=== PATIENT | male | born 1970 | race Caucasian/White ===

== ENCOUNTER → 2022-06-30 14:44 | Outpatient (CLI) | payer OTHER, SELFPAY ==
--- NOTE | 2022-06-30 14:47 | DI.RAD.S_ITS ---
PROCEDURE: XR SHOULDER RT MIN 2V INDICATIONS: Right shoulder strain TECHNIQUE: 3 views of the shoulder were acquired. COMPARISON: None. FINDINGS: Moderate acromioclavicular and glenohumeral osteoarthritis with joint space narrowing and marginal osteophytosis. No fracture. No suspicious soft tissue calcification IMPRESSION: Moderate glenohumeral and acromioclavicular degenerative changes. Dictated by: Francisco Cotter M.D. on 07/01/2022 at 10:11 Approved by: Francisco Cotter M.D. on 07/01/2022 at 10:13
== END ==
LOC: RAD 14:47
PROVIDERS: Referring Provider Nurse Practitioner Family; Visit Provider Nurse Practitioner Family
DX: S46.911A Strain of unspecified muscle, fascia and tendon at shoulder and upper arm level, right arm, initial encounter (principal); X58.XXXA Exposure to other specified factors, initial encounter
CPT/HCPCS: 73030